=== PATIENT | male | born 1995 | race American Indian/Alaskan Native ===

== ENCOUNTER 2021-07-05 17:53 | Emergency (ER) | payer SELFPAY ==
[2021-07-05] MEDS ORDERED: TETANUS,DIPH,PERTUSS(ACELL) VACCINE 0.5 ML SYRINGE IM ONE (18:36)
[2021-07-05] MEDS ORDERED: SODIUM CHLORIDE IRRI 500 ML 500 ML IR ONE ×2 (18:44→18:49)
[2021-07-05] MEDS ORDERED: SODIUM CHLORIDE 0.9% IRR 500 ML BOTTLE IR ONE (18:50)
[2021-07-05] MEDS ORDERED: IBUPROFEN 800 MG TAB PO ONE (18:50)
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
[2021-07-05 20:47] VITALS: BP 118/62
== END 2021-07-05 20:47 ==
LOC: ED 17:53
DX: S61.412A Laceration without foreign body of left hand, initial encounter (principal); X58.XXXA Exposure to other specified factors, initial encounter; Y93.89 Activity, other specified; Y92.89 Other specified places as the place of occurrence of the external cause; Y99.8 Other external cause status
CPT/HCPCS: 90471; 90715; 99283